=== PATIENT | female | born 1945 | race Caucasian/White ===

== ENCOUNTER 2018-09-05 14:20 | Emergency (ER) | payer MEDICARE, OTHER ==
[~2018-09-05] VITALS: Ht 167.6 cm; Wt 6.8 kg
[~2018-09-05 14:20] MED LIST: ALPR-624 PO; ALPR1TAB PO; AMIT50TA3 PO; BUS15T PO; HYDR-3972 PO; LEVO25TA2 PO; PRAV20TA4 PO
[2018-09-05 14:28] VITALS: BP 133/100
[2018-09-05] MEDS ORDERED: ondansetron 4mg rapidly disintigrating tab PO ONE (14:45)
[2018-09-05] MEDS ORDERED: ALPRAZolam 0.5mg tablet PO ONE ×2 (14:45→15:10)
[2018-09-05] MEDS ORDERED: cloNIDine 0.1 mg tablet PO ONE (15:10)
== END 2018-09-05 15:41 | disposition home or self-care (01) ==
LOC: ER 14:21
DX: F13.230 Sedative, hypnotic or anxiolytic dependence with withdrawal, uncomplicated (principal); G43.909 Migraine, unspecified, not intractable, without status migrainosus; M81.0 Age-related osteoporosis without current pathological fracture; F41.9 Anxiety disorder, unspecified; Z90.49 Acquired absence of other specified parts of digestive tract; Z90.710 Acquired absence of both cervix and uterus; Z98.890 Other specified postprocedural states; Z79.899 Other long term (current) drug therapy
CPT/HCPCS: 99284

== ENCOUNTER 2019-01-05 10:19 | Emergency (ER) | payer MEDICARE, OTHER | END 2019-01-05 12:33 | disposition left against medical advice (07) | LOC: ER 10:19 | DX: Z53.21 Procedure and treatment not carried out due to patient leaving prior to being seen by health care provider (principal) ==

== ENCOUNTER 2019-03-11 11:35 | Emergency (ER) | payer MEDICARE, OTHER ==
[~2019-03-11] VITALS: Ht 167.6 cm; Wt 70.8 kg
[2019-03-11] MEDS ORDERED: GABA-530 PO (13:30)
[2019-03-11 13:56] VITALS: BP 112/70
== END 2019-03-11 13:57 | disposition home or self-care (01) ==
LOC: ER 11:35
DX: F13.239 Sedative, hypnotic or anxiolytic dependence with withdrawal, unspecified (principal); G43.909 Migraine, unspecified, not intractable, without status migrainosus; I50.9 Heart failure, unspecified; Z90.49 Acquired absence of other specified parts of digestive tract; Z90.710 Acquired absence of both cervix and uterus; Z98.890 Other specified postprocedural states; Z79.899 Other long term (current) drug therapy
CPT/HCPCS: 99283

== ENCOUNTER 2021-04-30 18:38 | Emergency (ER) | payer MEDICARE, OTHER ==
[~2021-04-30] VITALS: Ht 167.6 cm; Wt 76.5 kg
[~2021-04-30 18:38] MED LIST changes: +GABA-530 PO
[2021-04-30] MEDS ORDERED: ketorolac tromethamine 15mg/ml inj. IM ONE (19:20)
[2021-04-30] MEDS ORDERED: ketorolac trometh. 30mg/ml inj. IM ONE (19:20)
[2021-04-30 20:45] VITALS: BP 132/68
== END 2021-04-30 20:46 | disposition home or self-care (01) ==
LOC: ER 18:38
DX: S39.012A Strain of muscle, fascia and tendon of lower back, initial encounter (principal); F41.9 Anxiety disorder, unspecified; G43.909 Migraine, unspecified, not intractable, without status migrainosus; Z79.899 Other long term (current) drug therapy; X58.XXXA Exposure to other specified factors, initial encounter; Y93.89 Activity, other specified; Y92.89 Other specified places as the place of occurrence of the external cause; Y99.8 Other external cause status
CPT/HCPCS: 72100; 96372; 99283; J1885

== ENCOUNTER 2021-06-13 06:58 | Emergency (ER) | payer MEDICARE, OTHER ==
[~2021-06-13] VITALS: Ht 167.6 cm; Wt 76.5 kg
[2021-06-13] MEDS ORDERED: ketorolac trometh inj. 60 MG/2 ML VIAL IM ONE (07:05)
[2021-06-13] MEDS ORDERED: orphenadrine citrate 60mg/2ml inj. IM ONE (07:05)
[2021-06-13] MEDS ORDERED: acetaminophen 325mg tablet PO ONE (07:05)
[2021-06-13] MEDS: LIDOcaine 5% patch TP ONE ×2 (07:12→07:30)
[2021-06-13] MEDS ORDERED: LIDOcaine 5% patch TP ONE (07:25)
[2021-06-13] MEDS ORDERED: HYDR-3965 PO (08:44)
[2021-06-13] MEDS ORDERED: IBUP-1984 PO (08:44)
[2021-06-13] MEDS ORDERED: LIDO700A32 TOP (08:44)
[2021-06-13] MEDS ORDERED: CYCL-1 PO (08:44)
[2021-06-13] MEDS ORDERED: ondansetron 4mg rapidly disintigrating tab PO ONE (08:45)
[2021-06-13] MEDS ORDERED: HYDROcodone/acetaminophen 5mg/325mg tablet PO ONE ×2 (08:45→08:50)
[2021-06-13 09:41] VITALS: BP 148/82
== END 2021-06-13 09:37 | disposition home or self-care (01) ==
LOC: ER 06:58
DX: S32.010A Wedge compression fracture of first lumbar vertebra, initial encounter for closed fracture (principal); S22.080A Wedge compression fracture of T11-T12 vertebra, initial encounter for closed fracture; M81.0 Age-related osteoporosis without current pathological fracture; G43.909 Migraine, unspecified, not intractable, without status migrainosus; Z87.440 Personal history of urinary (tract) infections; Z90.49 Acquired absence of other specified parts of digestive tract; Z90.710 Acquired absence of both cervix and uterus; Z98.891 History of uterine scar from previous surgery; W01.198A Fall on same level from slipping, tripping and stumbling with subsequent striking against other object, initial encounter; Z91.81 History of falling; Y93.89 Activity, other specified; Y92.099 Unspecified place in other non-institutional residence as the place of occurrence of the external cause; Y99.8 Other external cause status
CPT/HCPCS: 72131; 96372; 99284; J1885; J2360

== ENCOUNTER 2021-11-29 16:05 | Emergency (ER) | payer MEDICARE, OTHER ==
[~2021-11-29] VITALS: Ht 167.6 cm; Wt 63.6 kg
[~2021-11-29 16:05] MED LIST changes: +CYCL-1 PO; +LIDO700A32 TOP
[2021-11-29 17:14] LABS: BASOPHILS % (AUTO) 0.7 % (0-1); EOSINOPHILS # (AUTO) 0.2 X10'3 (0-0.9); EOSINOPHILS % (AUTO) 2.8 % (0-6); HEMATOCRIT 35.1 % (35.0-45.0); HEMOGLOBIN 11.8 g/dl (12.0-16.0); LYMPHOCYTES # (AUTO) 1.3 X10'3 (1.1-4.8); LYMPHOCYTES % (AUTO) 21.5 % (21-51); MEAN CORPUSCULAR HEMOGLOBIN 29.9 PG (27.0-31.0); MEAN CORPUSCULAR HGB CONC 33.7 g/dL (33.0-36.5); MEAN CORPUSCULAR VOLUME 88.7 FL (78-98); MEAN PLATELET VOLUME 7.1 FL (7.4-10.4); MONOCYTES # (AUTO) 0.4 X10'3 (0-0.9); MONOCYTES % (AUTO) 6.3 % (2-12); NEUTROPHILS % (AUTO) 68.7 % (42-75); PLATELET COUNT 273 X10'3 (140-440); RED BLOOD COUNT 3.96 X10'6 (4.20-5.60); RED CELL DISTRIBUTION WIDTH 15.2 % (11.5-14.5); WHITE BLOOD COUNT 5.8 X10'3 (4.5-11.0)
[2021-11-29 17:34] LABS: ALANINE AMINOTRANSFERASE 15 U/L (12-78); ALBUMIN 3.5 G/DL (3.4-5.0); ALBUMIN/GLOBULIN RATIO 0.9 (1.1-1.5); ALKALINE PHOSPHATASE 94 IU/L (46-116); ANION GAP 7 (8-16); ASPARTATE AMINO TRANSFERASE 16 U/L (10-37); BILIRUBIN,TOTAL 0.3 MG/DL (0.1-1.0); BLOOD UREA NITROGEN 19 MG/DL (7-18); CHLORIDE 103 MMOL/L (99-107); CREATININE 0.73 MG/DL (0.40-0.90); GLUCOSE 97 MG/DL (70-104); POTASSIUM 4.4 MMOL/L (3.5-5.1); SODIUM 139 MMOL/L (135-145); TOTAL CARBON DIOXIDE 29.2 MMOL/L (24-32); TOTAL PROTEIN 7.5 G/DL (6.4-8.2); eGFR 78 ML/MIN
--- NOTE | 2021-11-29 20:07 | NUR ---
VASCULAR AT BEDSIDE.
[2021-11-29] MEDS ORDERED: enoxaparin 100mg/ml syringe SUBCUT ONE (20:55)
[2021-11-29] MEDS ORDERED: iohexol 350MG/ML 100ml bottle IV ONE (21:11)
[2021-11-29] MEDS ORDERED: APIX5TAB3 PO (22:15)
[2021-11-29 23:18] VITALS: BP 132/86
== END 2021-11-29 23:15 | disposition home or self-care (01) ==
LOC: ER 16:06
DX: I82.402 Acute embolism and thrombosis of unspecified deep veins of left lower extremity (principal); R07.89 Other chest pain; R06.02 Shortness of breath; G43.909 Migraine, unspecified, not intractable, without status migrainosus; M81.0 Age-related osteoporosis without current pathological fracture; Z87.440 Personal history of urinary (tract) infections; Z90.49 Acquired absence of other specified parts of digestive tract; Z90.710 Acquired absence of both cervix and uterus; Z79.899 Other long term (current) drug therapy
CPT/HCPCS: 36415; 71275; 80053; 85025; 93971; 96372; 99285; J1650; Q9967; 93005

== ENCOUNTER 2022-11-06 16:38 | Emergency (ER) | payer MEDICARE, OTHER ==
[~2022-11-06] VITALS: Ht 170.2 cm; Wt 56.8 kg
[~2022-11-06 16:38] MED LIST changes: -ALPR-624 PO; -ALPR1TAB PO; +AMIT-1 PO; -AMIT50TA3 PO; -BUS15T PO; -CYCL-1 PO; -GABA-530 PO; -HYDR-3972 PO; -LEVO25TA2 PO; +LEVO50TA8 PO; -LIDO700A32 TOP; +PANT40TA54 PO; +POTA-207 PO; -PRAV20TA4 PO; +PRAV40TA3 PO
[2022-11-06 19:19] VITALS: BP 100/40
[2022-11-06] MEDS ORDERED: AMOX-117 PO (21:21)
--- NOTE | 2022-11-08 14:28 | NUR ---
TC FROM PATIENT STATING THAT SHE HAS BEEN UNABLE TO GET HER RX FILLED DUE TO PHARMACY CLOSED TODAY. PATIENT REQUESTS RX (AUGMENTIN) [facility]. RX CALLED TO [facility] ON [facility] AT THIS TIME.
== END 2022-11-06 21:36 | disposition home or self-care (01) ==
LOC: ER 16:40
DX: L03.211 Cellulitis of face (principal); G43.909 Migraine, unspecified, not intractable, without status migrainosus; F31.9 Bipolar disorder, unspecified; Z90.49 Acquired absence of other specified parts of digestive tract; Z79.899 Other long term (current) drug therapy; Z79.1 Long term (current) use of non-steroidal anti-inflammatories (NSAID)
CPT/HCPCS: 70486; 99284

== ENCOUNTER 2022-12-02 13:43 | Emergency (ER) | payer MEDICARE, OTHER ==
[~2022-12-02] VITALS: Ht 167.6 cm; Wt 61.4 kg
[2022-12-02 14:34] LABS: BASOPHILS % (AUTO) 0.6 % (0-1); EOSINOPHILS # (AUTO) 0.2 X10'3 (0-0.9); EOSINOPHILS % (AUTO) 2.2 % (0-6); HEMOGLOBIN 11.1 g/dl (12.0-16.0); LYMPHOCYTES # (AUTO) 2.4 X10'3 (1.1-4.8); LYMPHOCYTES % (AUTO) 27.9 % (21-51); MEAN CORPUSCULAR HEMOGLOBIN 27.1 PG (27.0-31.0); MEAN CORPUSCULAR HGB CONC 32.5 g/dL (33.0-36.5); MEAN CORPUSCULAR VOLUME 83.5 FL (78-98); MEAN PLATELET VOLUME 6.4 FL (7.4-10.4); MONOCYTES # (AUTO) 0.5 X10'3 (0-0.9); MONOCYTES % (AUTO) 5.3 % (2-12); NEUTROPHILS # (AUTO) 5.5 X10'3 (1.8-7.7); PLATELET COUNT 526 X10'3 (140-440); RED BLOOD COUNT 4.08 X10'6 (4.20-5.60); RED CELL DISTRIBUTION WIDTH 14.6 % (11.5-14.5); WHITE BLOOD COUNT 8.5 X10'3 (4.5-11.0)
[2022-12-02] MEDS ORDERED: normal saline 1000ML IV soln IVB ONE (14:35)
[2022-12-02 14:52] LABS: ALANINE AMINOTRANSFERASE 9 U/L (12-78); ALBUMIN 3.3 G/DL (3.4-5.0); ALBUMIN/GLOBULIN RATIO 0.8 (1.1-1.5); ALKALINE PHOSPHATASE 116 IU/L (46-116); ANION GAP 7 (8-16); ASPARTATE AMINO TRANSFERASE 14 U/L (10-37); BILIRUBIN,TOTAL 0.2 MG/DL (0.1-1.0); BLOOD UREA NITROGEN 14 MG/DL (7-18); BUN/CREATININE RATIO 12.4 (6.6-38.0); CALCIUM 9.6 MG/DL (8.5-10.1); CHLORIDE 106 MMOL/L (99-107); CREATININE 1.13 MG/DL (0.40-0.90); GLUCOSE 103 MG/DL (70-104); POTASSIUM 3.5 MMOL/L (3.5-5.1); SODIUM 142 MMOL/L (135-145); TOTAL CARBON DIOXIDE 29.4 MMOL/L (24-32); TOTAL PROTEIN 7.5 G/DL (6.4-8.2); eGFR 47 ML/MIN
[2022-12-02 15:32] VITALS: BP 131/79
[2022-12-02 15:54] LABS: CLARITY,URINE SLIGHTLY CLOUDY (Clear); COLOR,URINE YELLOW (Yellow); GLUCOSE, URINE NEGATIVE (Neg); KETONES,URINE NEGATIVE (Neg); LEUKOCYTE ESTERASE ,URINE NEGATIVE (Neg); NITRITES, URINE NEGATIVE (Neg); OCCULT BLOOD,URINE NEGATIVE (Neg); PH,URINE 7.5 (4.8-8.0); PROTEIN,URINE NEGATIVE (Neg); UROBILINOGEN,URINE 0.2 E.U/dL (0.2-1.0)
[2022-12-02 16:12] LABS: UA COLLECTION TYPE CLN CATCH MIDSTREAM
[2022-12-02 16:13] LABS: AMORPHOUS PHOSPHATES 1+; BACTERIA,URINE NONE SEEN /HPF (Neg); HYALINE CASTS 0-3 /LPF (NEGATIVE); MUCUS STRANDS FEW /LPF (Neg); RBC,URINE NONE SEEN /HPF (0-2); SQUAMOUS EPITHELIAL CELL,UR FEW /LPF (FEW); WBC,URINE 0-4 /HPF (0-4)
[2022-12-02] MEDS ORDERED: HYDROcodone/acetaminophen 5mg/325mg tablet PO ONE (16:20)
[2022-12-02] MEDS ORDERED: HYDR-3965 PO (16:43)
[2022-12-09] MEDS ORDERED: AMIT-1 PO (11:06)
[2022-12-09] MEDS ORDERED: CLON0.1T2 PO (11:12)
== END 2022-12-02 17:18 | disposition home or self-care (01) ==
LOC: ER 13:44
DX: R68.84 Jaw pain (principal); M26.601 Right temporomandibular joint disorder, unspecified; M54.50 Low back pain, unspecified; G43.909 Migraine, unspecified, not intractable, without status migrainosus; Z90.49 Acquired absence of other specified parts of digestive tract; Z98.890 Other specified postprocedural states
CPT/HCPCS: 36415; 71045; 80053; 81001; 83605; 84145; 85025; 87040; 99284; J7030

== ENCOUNTER 2023-06-22 20:15 | Emergency (ER) | payer MEDICARE, OTHER ==
[~2023-06-22] VITALS: Ht 167.6 cm; Wt 63.6 kg
[~2023-06-22 20:15] MED LIST changes: +CLOT10TR PO; -LEVO50TA8 PO; +METH54TA12 PO; -POTA-207 PO; -PRAV40TA3 PO
[2023-06-22 20:45] LABS: BASOPHILS # (AUTO) 0.1 X10'3 (0-0.2); BASOPHILS % (AUTO) 1.2 % (0-1); EOSINOPHILS # (AUTO) 0.1 X10'3 (0-0.9); EOSINOPHILS % (AUTO) 2.3 % (0-6); HEMATOCRIT 25.4 % (35.0-45.0); LYMPHOCYTES # (AUTO) 2.1 X10'3 (1.1-4.8); LYMPHOCYTES % (AUTO) 44.2 % (21-51); MEAN CORPUSCULAR HEMOGLOBIN 21.2 PG (27.0-31.0); MEAN CORPUSCULAR HGB CONC 31.5 g/dL (33.0-36.5); MEAN CORPUSCULAR VOLUME 67.4 FL (78-98); MEAN PLATELET VOLUME 6.7 FL (7.4-10.4); MONOCYTES # (AUTO) 0.3 X10'3 (0-0.9); NEUTROPHILS # (AUTO) 2.1 X10'3 (1.8-7.7); NEUTROPHILS % (AUTO) 45.3 % (42-75); PLATELET COUNT 412 X10'3 (140-440); RED BLOOD COUNT 3.76 X10'6 (4.20-5.60); RED CELL DISTRIBUTION WIDTH 20.5 % (11.5-14.5); WHITE BLOOD COUNT 4.6 X10'3 (4.5-11.0)
[2023-06-22 21:03] LABS: ALANINE AMINOTRANSFERASE 9 U/L (12-78); ALBUMIN/GLOBULIN RATIO 0.8 (1.1-1.5); ALKALINE PHOSPHATASE 94 IU/L (46-116); ANION GAP 8 (8-16); ASPARTATE AMINO TRANSFERASE 14 U/L (10-37); BILIRUBIN,TOTAL 0.1 MG/DL (0.1-1.0); BLOOD UREA NITROGEN 9 MG/DL (7-18); BUN/CREATININE RATIO 10.5 (10.0-20.0); CALCIUM 8.7 MG/DL (8.5-10.1); CHLORIDE 106 MMOL/L (99-107); CREATININE 0.86 MG/DL (0.40-0.90); GLUCOSE 90 MG/DL (70-104); SODIUM 145 MMOL/L (135-145); TOTAL CARBON DIOXIDE 30.9 MMOL/L (24-32); TOTAL PROTEIN 6.6 G/DL (6.4-8.2); eGFR 64 ML/MIN
[2023-06-22 21:07] VITALS: BP 141/64; PULSE 79; TEMP 98.2; O2SAT 97
[2023-06-22 21:11] LABS: POTASSIUM 2.7 MMOL/L (3.5-5.1)
[2023-06-22] MEDS ORDERED: POTASSIUM BICARB 20meq eff tab 20 MEQ TABLET.EFF PO ONE (21:15)
[2023-06-22] MEDS ORDERED: normal saline 1000ml 1,000 ML IV ONE (21:15)
[2023-06-22 21:21] LABS: ANISOCYTOSIS 3+; HYPOCHROMASIA 1+; MICROCYTOSIS 2+; PLATELET ESTIMATE NORMAL
[2023-06-22 21:22] LABS: POLYCHROMASIA 1+
[2023-06-22 21:23] LABS: ELLIPTOCYTES FEW
[2023-06-22 21:48] VITALS: RESP 18
[2023-06-22] MEDS ORDERED: POTA-207 PO (23:37)
--- NOTE | 2023-06-23 00:09 | NUR ---
IV DC'D PT BEING DISCHARGED DRESSING APPLIED
== END 2023-06-23 00:11 | disposition home or self-care (01) ==
LOC: ER 20:15
DX: E87.6 Hypokalemia (principal); E86.0 Dehydration; D50.9 Iron deficiency anemia, unspecified; G43.909 Migraine, unspecified, not intractable, without status migrainosus; F41.9 Anxiety disorder, unspecified; Z90.49 Acquired absence of other specified parts of digestive tract; Z79.899 Other long term (current) drug therapy; Z79.1 Long term (current) use of non-steroidal anti-inflammatories (NSAID); Z79.2 Long term (current) use of antibiotics
CPT/HCPCS: 36415; 71045; 80053; 83880; 84484; 85008; 85025; 93005; 96360; 96361; 99285; J7030

== ENCOUNTER 2023-06-27 21:11 | Emergency (ER) | payer MEDICARE, OTHER ==
[~2023-06-27] VITALS: Ht 167.6 cm; Wt 61.4 kg
[~2023-06-27 21:11] MED LIST changes: +POTA-207 PO
[2023-06-27 22:07] VITALS: TEMP 98.6
[2023-06-27 22:19] LABS: BASOPHILS # (AUTO) 0.1 X10'3 (0-0.2); EOSINOPHILS # (AUTO) 0.1 X10'3 (0-0.9); HEMATOCRIT 27.7 % (35.0-45.0); HEMOGLOBIN 8.7 g/dl (12.0-16.0); LYMPHOCYTES # (AUTO) 1.8 X10'3 (1.1-4.8); MEAN CORPUSCULAR HEMOGLOBIN 21.3 PG (27.0-31.0); MEAN CORPUSCULAR HGB CONC 31.5 g/dL (33.0-36.5); MEAN CORPUSCULAR VOLUME 67.7 FL (78-98); MONOCYTES # (AUTO) 0.4 X10'3 (0-0.9); MONOCYTES % (AUTO) 7.6 % (2-12); NEUTROPHILS # (AUTO) 2.9 X10'3 (1.8-7.7); NEUTROPHILS % (AUTO) 55.4 % (42-75); PLATELET COUNT 464 X10'3 (140-440); RED CELL DISTRIBUTION WIDTH 20.7 % (11.5-14.5); WHITE BLOOD COUNT 5.3 X10'3 (4.5-11.0)
[2023-06-27 22:44] VITALS: RESP 16; O2SAT 96
[2023-06-27 22:47] LABS: ALANINE AMINOTRANSFERASE 12 U/L (12-78); ALBUMIN 3.1 G/DL (3.4-5.0); ALBUMIN/GLOBULIN RATIO 0.9 (1.1-1.5); ALKALINE PHOSPHATASE 86 IU/L (46-116); ANION GAP 12 (8-16); ASPARTATE AMINO TRANSFERASE 14 U/L (10-37); BILIRUBIN,TOTAL 0.1 MG/DL (0.1-1.0); BLOOD UREA NITROGEN 9 MG/DL (7-18); BUN/CREATININE RATIO 9.6 (10.0-20.0); CALCIUM 9.2 MG/DL (8.5-10.1); CHLORIDE 107 MMOL/L (99-107); CREATININE 0.94 MG/DL (0.40-0.90); GLUCOSE 97 MG/DL (70-104); POTASSIUM 3.9 MMOL/L (3.5-5.1); SODIUM 145 MMOL/L (135-145); TOTAL CARBON DIOXIDE 26.5 MMOL/L (24-32); TOTAL PROTEIN 6.6 G/DL (6.4-8.2); eGFR 58 ML/MIN
[2023-06-27 22:53] LABS: ANISOCYTOSIS 3+; MICROCYTOSIS 2+; PLATELET ESTIMATE INCREASED
[2023-06-27 22:56] VITALS: BP 77/53; PULSE 115
[2023-06-27] MEDS ORDERED: FERROUS SULFATE 142 MG TABLET.ER (45mg elemental) PO ONE (23:00)
[2023-06-27] MEDS ORDERED: normal saline 1000ML IV soln IVB ONE (23:00)
[2023-06-27] MEDS ORDERED: FERR236T3 PO (23:59)
== END 2023-06-28 00:45 | disposition home or self-care (01) ==
LOC: ER 21:12
DX: R42 Dizziness and giddiness (principal); R06.02 Shortness of breath; E86.0 Dehydration; G43.909 Migraine, unspecified, not intractable, without status migrainosus; F31.9 Bipolar disorder, unspecified; Z90.49 Acquired absence of other specified parts of digestive tract; Z98.890 Other specified postprocedural states; Z79.899 Other long term (current) drug therapy; Z79.1 Long term (current) use of non-steroidal anti-inflammatories (NSAID)
CPT/HCPCS: 36415; 71045; 80053; 83880; 84484; 85008; 85025; 93005; 99285; J7030

== ENCOUNTER 2023-07-14 14:20 | Emergency (ER) | payer MEDICARE, OTHER ==
[~2023-07-14] VITALS: Ht 167.6 cm; Wt 61.3 kg
[~2023-07-14 14:20] MED LIST changes: +FERR236T3 PO
[2023-07-14 14:31] VITALS: TEMP 98.6
[2023-07-14 14:34] LABS: BASOPHILS % (AUTO) 0.4 % (0-1); EOSINOPHILS # (AUTO) 0.1 X10'3 (0-0.9); EOSINOPHILS % (AUTO) 1.6 % (0-6); HEMATOCRIT 30.8 % (35.0-45.0); HEMOGLOBIN 9.6 g/dl (12.0-16.0); LYMPHOCYTES # (AUTO) 2.8 X10'3 (1.1-4.8); LYMPHOCYTES % (AUTO) 45.7 % (21-51); MEAN CORPUSCULAR HEMOGLOBIN 21.9 PG (27.0-31.0); MEAN CORPUSCULAR HGB CONC 31.2 g/dL (33.0-36.5); MEAN CORPUSCULAR VOLUME 70.3 FL (78-98); MEAN PLATELET VOLUME 6.9 FL (7.4-10.4); MONOCYTES # (AUTO) 0.5 X10'3 (0-0.9); MONOCYTES % (AUTO) 7.7 % (2-12); NEUTROPHILS # (AUTO) 2.8 X10'3 (1.8-7.7); NEUTROPHILS % (AUTO) 44.6 % (42-75); PLATELET COUNT 446 X10'3 (140-440); RED BLOOD COUNT 4.38 X10'6 (4.20-5.60); RED CELL DISTRIBUTION WIDTH 22.3 % (11.5-14.5); WHITE BLOOD COUNT 6.2 X10'3 (4.5-11.0)
[2023-07-14 14:47] LABS: ALANINE AMINOTRANSFERASE 14 U/L (12-78); ALBUMIN 3.5 G/DL (3.4-5.0); ALBUMIN/GLOBULIN RATIO 0.9 (1.1-1.5); ALKALINE PHOSPHATASE 79 IU/L (46-116); ANION GAP 11 (8-16); ASPARTATE AMINO TRANSFERASE 14 U/L (10-37); BILIRUBIN,TOTAL 0.2 MG/DL (0.1-1.0); BLOOD UREA NITROGEN 8 MG/DL (7-18); BUN/CREATININE RATIO 10.5 (10.0-20.0); CALCIUM 9.2 MG/DL (8.5-10.1); CHLORIDE 106 MMOL/L (99-107); CREATININE 0.76 MG/DL (0.40-0.90); GLUCOSE 114 MG/DL (70-104); POTASSIUM 3.6 MMOL/L (3.5-5.1); SODIUM 141 MMOL/L (135-145); TOTAL CARBON DIOXIDE 24.4 MMOL/L (24-32); TOTAL PROTEIN 7.4 G/DL (6.4-8.2); eCRCL 60 ML/MIN; eGFR 74 ML/MIN
[2023-07-14 14:54] LABS: PRO BRAIN NATRIURETIC PEPTIDE 85 PG/ML (0-450)
[2023-07-14 14:59] LABS: ACANTHOCYTES 1+; ANISOCYTOSIS 3+; ELLIPTOCYTES FEW; MICROCYTOSIS 1+; PLATELET ESTIMATE INCREASED
[2023-07-14 18:29] VITALS: BP 154/87; PULSE 82; RESP 16; O2SAT 100
== END 2023-07-14 18:32 | disposition home or self-care (01) ==
LOC: ER 14:21
DX: R55 Syncope and collapse (principal); R42 Dizziness and giddiness; G43.909 Migraine, unspecified, not intractable, without status migrainosus; F41.9 Anxiety disorder, unspecified; Z90.49 Acquired absence of other specified parts of digestive tract; Z79.899 Other long term (current) drug therapy
CPT/HCPCS: 36415; 71045; 80053; 83880; 84484; 85008; 85025; 93005; 99285

== ENCOUNTER 2025-11-14 02:50 | Emergency (ER) | payer MEDICARE, OTHER ==
[~2025-11-14] VITALS: Ht 167.6 cm; Wt 49.6 kg
[~2025-11-14 02:50] MED LIST changes: +AMIT-311 PO; -CLOT10TR PO; -FERR236T3 PO; -METH54TA12 PO; -PANT40TA54 PO; -POTA-207 PO; +PRAV10TA12 PO; +SYN0.088T PO
--- NOTE | 2025-11-14 03:43 | Physician Documentation ---
History of Present Illness ~ Chief Complaint: Back Pain Stated Complaint: BACK PAIN Time Seen by MD: 03:18 Primary Medical Doctor: Dr. Devante Duong [facility] Patient presents to the emergency room for evaluation of bilateral lower back pain. Onset three days. No prior instance of back pain. She had denies any falls or unusual activities. She has had nothing for the pain. Bilateral lower back pain exacerbated with palpation and movement. She is concerned she may have a urinary tract infection. No fevers. No bladder or bowel incontinence and no lower extremity numbness paresthesias or weakness Medication Reconciliation Allergies: Coded Allergies: No Known Allergies (Unverified , 08/02/25) Scheduled Acetaminophen Susp* (Tylenol Susp*), 30 ML PO Q6H Amitriptyline Hcl (Amitriptyline Hcl), 2 TAB PO HS, (Reported) Amitriptyline Hcl* (Elavil*), 1 TAB PO HS, (Reported) Ibuprofen 100MG/5ML Susp* (Motrin 100 MG/5ML Susp.*), 30 ML PO Q6H Levothyroxine Sodium* (Synthroid*), 1 TAB PO DAILY, (Reported) Lidocaine (Lidoderm), 1 PATCH TOP DAILY Pravastatin Sodium (Pravastatin Sodium), 1 TAB PO HS, (Reported) Past Medical History Past Medical History: Headache, Migraine, UTI, Osteoporosis, Spine Compression, Anxiety, Panic Disorder Past Surgical History: appendectomy, cholecystectomy, , hysterectomy, other Other Past Surgical History: 3 ear surgeries Patient History: (CHF) Congestive heart failure CHILD (CVA) Cerebrovascular accident (Cancer) Malignant carcinoid tumor FATHER, Onset:60 years & older (DM Type 2) Diabetes mellitus type 2 FATHER MOTHER, Onset:60 years & older (TIA) Transient ischemic attack FATHER, Onset:60 years & older Alcohol Use: None Drug Use: none Lives with: Spouse Lives In: Home Occupation: retired Review of Systems ROS All review of systems negative except as per HPI Physical Exam Physical Exam Vital Signs: Temperature: 98.3, Source: Oral, Heart Rate: 76, Respiratory Rate: 18, BP: 134/81, Pulse Oximetry: 94, Weight: 49.600 Oxygen Flow Rate: 0 Physical Exam General: Patient is awake, alert, oriented x4 in no acute distress Head: Normocephalic and atraumatic. Eyes: Conjunctival normal. EOMI. PERRL. ENT: Mucous membranes moist. Neck: Supple, trachea is midline. Chest: Clear to auscultation bilaterally without rales, rhonchi, or wheezes. There is no accessory muscle use or retractions. Cardiac: RRR without murmurs, gallops, or rubs. Abd: Soft, nondistended, nontender, with normoactive bowel sounds. No guarding, rebound, or rigidity. Back: Tenderness to palpation to bilateral SI joints Progress Results/Orders Results/Orders Orders - ADRIANO HEDRICK MD Cult Urine + Cross Ct (11/14/25 05:15) Completed Orders - ADRIANO HEDRICK MD Ketorolac Trometh 15mg/Ml Vial (Toradol (11/14/25 03:45) Acetaminophen 1,000mg/100ml Iv (Ofirmev (11/14/25 03:45) Lidocaine 5% Patch (Lidoderm 5% Patch) (11/14/25 03:45) Normal Saline 1000ml (0.9% Sodium Chlori (11/14/25 04:35) Ua W/Microscopic, Cult If Ind (11/14/25 04:48) Medications Received in ER Medications (Trade) Dose Ordered Sig/Gunjan Route PRN Reason Start Time Stop Time Status Last Admin Dose Admin (Toradol injection) 15 mg ONCE ONCE IV 11/14/25 03:45 11/14/25 03:46 DC 11/14/25 04:16 15 MG Acetaminophen 100 ml @ 400 mls/hr ONCE ONCE IV 11/14/25 03:45 11/14/25 03:59 DC 11/14/25 04:16 400 MLS/HR (Lidoderm 5% Patch) 2 patch ONCE ONCE TP 11/14/25 03:45 11/14/25 03:46 DC 11/14/25 04:21 2 PATCH Vital Signs 11/14/25 11/14/25 11/14/25 11/14/25 02:56 03:17 04:16 04:31 Temp 98.3 98.3 Pulse 76 77 Resp 18 18 B/P (MAP) 134/81 117/57 (77) Pulse Ox 94 96 O2 Flow Rate 0 0 Laboratory Tests Test 11/14/25 04:48 Urine Specimen Description Cln catch midstream Urine Color Yellow Urine Clarity Slightly cloudy Urine pH 8.0 Urine Specific [place] 1.010 Urine Protein Negative Urine Glucose (UA) Negative Urine Ketones Negative Urine Occult Blood Negative Urine Nitrite Negative Urine Bilirubin Negative Urine Urobilinogen 0.2 Urine Leukocyte Esterase Negative Urine RBC 0-2 Urine WBC 0-4 Urine Squamous Epithelial Cells Few Urine Amorphous Phosphates 2+ Urine Bacteria 4+ Urine Culture Indicated Indicated Volume Urine Centrifuged 10 ml Urine Comment Medical Decision Making Additional information obtaine: old records Findings Patient presents to the emergency room with back pain that has per HPI. Differentials include but are not limited to lumbago, aortic pathology, shingles, kidney stone, urinary tract infection therefore urinalysis ordered which was clear of both blood and infection and he had not feel patient is suffering from pyelonephritis or kidney stone. She is responding to therapy. No spinal midline tenderness and no history of traumas or falls and he had not feel patient requires any imaging. Given tenderness to palpation over SI joints I believe she is suffering from musculoskeletal pain and we will treat her accordingly. I will be prescribing her liquid ibuprofen and Tylenol as she has history of esophageal stricture that has problems swallowing pills. Differential Dx:Considerations: Bowel obstruction Departure Disposition: 01 HOME / SELF CARE / HOMELESS Impression: Primary Impression: Lumbago Condition: Improved Discharge Instructions: Acute Back Pain, Adult Referrals: NO PRIMARY CARE PROVIDER (PCP) Prescriptions Lidocaine (Lidoderm) 5 % Adh..patch 1 PATCH TOP DAILY for 30 Days, #30 PATCH 0 Refills may wear up to 12 hours Prov: ADRIANO HEDRICK MD 11/14/25 Acetaminophen Susp* (Tylenol Susp*) 160 Mg/5 Ml (5 Ml) Solution 30 ML PO Q6H, #300 ML Prov: ADRIANO HEDRICK MD 11/14/25 Ibuprofen 100MG/5ML Susp* (Motrin 100 MG/5ML Susp.*) 100 Mg/5 Ml Susp 30 ML PO Q6H, #300 ML TAKE 2 TEASPOONFULS EVERY 6 HOURS NEEDED FOR PAIN. SHAKE WELL PRIOR TO EACH USE Prov: ADRIANO HEDRICK MD 11/14/25 Signature Scribe Signature: No scribe Attestation: The note accurately reflects work and decisions made by me.Adriano Hedrick MD 11/14/25 05:21 ADRIANO HEDRICK MD Nov 14, 2025 03:43
[2025-11-14] MEDS: acetaminophen 1,000mg/100ml IV 100 ML IV ONE (04:16)
[2025-11-14] MEDS: ketorolac trometh 15mg/ml vial 15 MG/ML ML IV ONE (04:16)
[2025-11-14] MEDS: normal saline 1000ML IV soln IVB ONE (04:52)
[2025-11-14 05:07] LABS: LEUKOCYTE ESTERASE ,URINE NEGATIVE (Neg); NITRITES, URINE NEGATIVE (Neg); OCCULT BLOOD,URINE NEGATIVE (Neg)
[2025-11-14 05:08] LABS: UA COLLECTION TYPE CLN CATCH MIDSTREAM
[2025-11-14 05:14] LABS: SQUAMOUS EPITHELIAL CELL,UR FEW /LPF (FEW)
[2025-11-14 05:15] LABS: AMORPHOUS PHOSPHATES 2+
[2025-11-14] MEDS ORDERED: IBUP-2766 PO (05:18)
[2025-11-14] MEDS ORDERED: ACET160S PO (05:18)
[2025-11-14] MEDS ORDERED: LIDO-52 TOP (05:18)
[2025-11-14 05:26] VITALS: BP 117/57; PULSE 78; RESP 14; TEMP 98.3; O2SAT 91
== END 2025-11-14 05:27 | disposition home or self-care (01) ==
LOC: ER 02:50
DX: M54.50 Low back pain, unspecified (principal); E11.9 Type 2 diabetes mellitus without complications; I50.9 Heart failure, unspecified; G43.909 Migraine, unspecified, not intractable, without status migrainosus; Z87.440 Personal history of urinary (tract) infections; Z90.49 Acquired absence of other specified parts of digestive tract; Z90.710 Acquired absence of both cervix and uterus; Z79.899 Other long term (current) drug therapy; Z98.890 Other specified postprocedural states
CPT/HCPCS: 81001; 87088; 96374; 96375; 99284; J0131; J1885; J7040